=== PATIENT | male | born 1975 | race Caucasian/White ===

== ENCOUNTER 2017-03-16 12:18 | Emergency (ER) | payer OTHER ==
[~2017-03-16] VITALS: Ht 180.3 cm; Wt 86.4 kg
[~2017-03-16 12:18] MED LIST: TGRUNK; TRZUNK
[2017-03-16 12:20] VITALS: TEMP 37.1; Ht 180.3 cm; Wt 86.4 kg
[2017-03-16] MEDS ORDERED: TRL150 PO (12:52)
[2017-03-16] MEDS ORDERED: TRIH2TAB2 PO (12:52)
[2017-03-16] MEDS ORDERED: EFF75 PO (12:52)
[2017-03-16] MEDS ORDERED: GDN/80 PO (12:52)
[2017-03-16] MEDS ORDERED: TRIH5TAB2 PO (12:52)
[2017-03-16] MEDS ORDERED: NEOMOIN TOP (12:52)
[2017-03-16] MEDS ORDERED: HYDR50CA2 PO (12:52)
[2017-03-16] MEDS ORDERED: COALSHA TOP (12:52)
[2017-03-16] MEDS ORDERED: IBUP600T44 PO (12:52)
[2017-03-16] MEDS ORDERED: TRAZ50TA35 PO (12:52)
[2017-03-16] MEDS ORDERED: PRVHFAIN INH (12:52)
--- NOTE | 2017-03-16 12:58 | EMERGENCY ROOM VISIT NOTE ---
History Report prepared by Marie: Elisha Dumas Under the Supervision of: Dr. Dre Aldana M.D. First contact with patient: 12:42 Chief Complaint: GI ASSESSMENT Stated Complaint: INTERNAL BLEEDING History of Present Illness The patient is a 41 year old male who presents to the Emergency Room for a GI assessment. The patient reports hematochezia that began yesterday. He states that he is passing blood even when he is just passing gas. He has never experienced symptoms like this before. The patient also notes some lower abdominal pain that is worsened with palpation. He rates his pain as a 5/10 in severity. He notes nausea. The patient denies vomiting. He does not take any blood thinners. He has not consumed any alcohol in many years. Source of History: patient Onset: yesterday Position: other (rectum) Symptom Intensity: 5/10 Quality: other (bleeding) Timing: constant Modifying Factors (Worsening): defecation (/passing gas) Associated Symptoms: + nausea, + abdominal pain, + hematochezia, No vomiting Review of Systems All systems have been listed, reviewed, and are negative other than those previously mentioned. Please see Additional Medical History Sheet. Past Medical & Surgical Medical Problems: (1) Depressive disorder, not elsewhere classified (2) History of suicide attempt (3) Self-harming behavior Family History Cancer Social History Smoking Status: Former Smoker Alcohol Use: none Housing Status: other (incarcerated ) Occupation Status: other (incarcerated) Current/Historical Medications Scheduled Albuterol (Ventolin Hfa), 2 PUFFS INH QID Hemphill Tar Extract (Therapeutic Shampoo), 1 APPLN TOP UD Hydrocortisone Acetate (Rectal (Anusol-Hc), 1 SUPP MA BID Hydroxyzine Pamoate (Vistaril), 100 MG PO BID Ibuprofen (Motrin), 600 MG PO TID Ziekmecd-Pewfpavixv-Nuyqffabw (Lanabiotic), TOP BID Oxcarbazepine (Oxcarbazepine), 1 TAB PO BID Trazodone Hcl (Trazodone), 150 MG PO HS Trihexyphenidyl Hcl (Artane), 2 MG PO BID Trihexyphenidyl Hcl (Trihexyphenidyl Hcl), 1 TAB PO BID Venlafaxine Hcl (Effexor), 3 TABS PO DAILY Ziprasidone Hcl (Geodon), 80 MG PO BID Allergies Coded Allergies: No Known Allergies (Unverified , 03/16/17) Physical Exam Vital Signs Date Time Temp Pulse Resp B/P (MAP) Pulse Ox O2 Delivery O2 Flow Rate FiO2 03/16/17 14:58 67 16 126/81 98 03/16/17 13:56 72 18 138/89 97 Room Air 03/16/17 13:18 67 03/16/17 12:20 37.1 74 18 144/96 95 Room Air Physical Exam GENERAL: Patient awake, alert, oriented x 3. Patient follows commands. Patient does not appear toxic. Patient is adequately hydrated and well- nourished. SKIN: Multiple healed scars across chest and right arm. No erythema, pallor, cyanosis or rash HEENT: Normal head, pupils equal, reactive to light and accommodation. Ears normal. Oral cavity and posterior pharynx appear normal. Neck: Without adenopathy, no neck vein distention. LUNGS: Clear to auscultation. No wheezes, no rales, no rhonchi. HEART: No murmurs. No gallops. No rubs ABDOMEN: Scar across mid-abdomen. Vague RLQ tenderness. No masses, no rebound, no hepatomegaly or splenomegaly. RECTAL: Very small non-bleeding hemorrhoid, brown guaiac positive stool. EXTREMITIES: Multiple scars across right arm. No signs of trauma. No pedal or pretibial edema. No calf or thigh tenderness. NEUROLOGIC: Cranial nerves II-XII within normal limits. No gross motor sensory function deficits. Medical Decision & Procedures Laboratory Results 03/16/17 13:03 Red Blood Count 5.22, Mean Corpuscular Volume 82.2, Mean Corpuscular Hemoglobin 28.7, Mean Corpuscular Hemoglobin Concent 35.0, Mean Platelet Volume 8.4, Neutrophils (%) (Auto) 68.9, Lymphocytes (%) (Auto) 22.0, Monocytes (%) (Auto) 8.4, Eosinophils (%) (Auto) 0.3, Basophils (%) (Auto) 0.3, Neutrophils # (Auto) 4.82, Lymphocytes # (Auto) 1.54, Monocytes # (Auto) 0.59, Eosinophils # (Auto) 0.02, Basophils # (Auto) 0.02 03/16/17 13:03 Test 03/16/17 13:03 03/16/17 14:10 White Blood Count 7.00 K/uL (4.8-10.8) Red Blood Count 5.22 M/uL (4.7-6.1) Hemoglobin 15.0 g/dL (14.0-18.0) Hematocrit 42.9 % (42-52) Mean Corpuscular Volume 82.2 fL (80-100) Mean Corpuscular Hemoglobin 28.7 pg (25-34) Mean Corpuscular Hemoglobin Concent 35.0 g/dl (32-36) Platelet Count 264 K/uL (130-400) Mean Platelet Volume 8.4 fL (7.4-10.4) Neutrophils (%) (Auto) 68.9 % Lymphocytes (%) (Auto) 22.0 % Monocytes (%) (Auto) 8.4 % Eosinophils (%) (Auto) 0.3 % Basophils (%) (Auto) 0.3 % Neutrophils # (Auto) 4.82 K/uL (1.4-6.5) Lymphocytes # (Auto) 1.54 K/uL (1.2-3.4) Monocytes # (Auto) 0.59 K/uL (0.11-0.59) Eosinophils # (Auto) 0.02 K/uL (0-0.5) Basophils # (Auto) 0.02 K/uL (0-0.2) RDW Standard Deviation 39.8 fL (36.4-46.3) RDW Coefficient of Variation 13.2 % (11.5-14.5) Immature Granulocyte % (Auto) 0.1 % Immature Granulocyte # (Auto) 0.01 K/uL (0.00-0.02) Prothrombin Time 10.4 SECONDS (9.0-12.0) Prothromb Time International Ratio 1.0 (0.9-1.1) Activated Partial Thromboplast Time 27.3 SECONDS (21.0-31.0) Partial Thromboplastin Ratio 1.1 Anion Gap 6.0 mmol/L (3-11) Est Creatinine Clear Calc Drug Dose 94.1 ml/min Estimated GFR () 96.1 Estimated GFR (Non- 82.9 BUN/Creatinine Ratio 10.0 (10-20) Calcium Level 9.5 mg/dl (8.5-10.1) Total Bilirubin 0.5 mg/dl (0.2-1) Aspartate Amino Transf (AST/SGOT) 24 U/L (15-37) Alanine Aminotransferase (ALT/SGPT) 33 U/L (12-78) Alkaline Phosphatase 94 U/L (45-117) Total Protein 7.4 gm/dl (6.4-8.2) Albumin 4.2 gm/dl (3.4-5.0) Globulin 3.2 gm/dl (2.5-4.0) Albumin/Globulin Ratio 1.3 (0.9-2) Urine Color YELLOW Urine Appearance CLEAR (CLEAR) Urine pH 8.0 (4.5-7.5) Urine Specific [place] 1.006 (1.000-1.030) Urine Protein NEG (NEG) Urine Glucose (UA) NEG (NEG) Urine Ketones NEG (NEG) Urine Occult Blood NEG (NEG) Urine Nitrite NEG (NEG) Urine Bilirubin NEG (NEG) Urine Urobilinogen NEG (NEG) Urine Leukocyte Esterase NEG (NEG) Laboratory results as stated above per my review. ECG Indication: other Rate (beats per minute): 66 Rhythm: normal sinus Findings: no acute ischemic change, no ectopy ED Course 1242: Past medical records reviewed. The patient was evaluated in room C5. A complete history and physical examination was performed. 1422: I reassessed the patient at this time. He is feeling better and resting comfortably. I discussed the results and treatment plan with the patient. I answered all pertaining questions that he had. He expressed understanding and verbalized agreement. The patient will be discharged back to assisted. Medical Decision Differential diagnoses includes rectal bleeding, anemia, rectal polyp, diverticulitis, neoplastic disease, fissure, hemorrhoids. The patient has a small external hemorrhoid and may have internal hemorrhoids or fissure. He had minimally guaiac positive stool. Hemoglobin and hematocrit are stable. Liver enzymes are within normal range. I believe the patient can safely return to the assisted with rectal suppositories. He does need follow-up in about 1 week to make sure he is no longer bleeding. Medication Reconciliation: I attest that I have personally reviewed the patient' s current medication list. Blood Pressure Screening: Patient was found to have an elevated blood pressure and was referred to their primary doctor for recheck and further treatment. Impression Primary Impression: Rectal bleeding Scribe Attestation The scribe's documentation has been prepared under my direction and personally reviewed by me in its entirety. I confirm that the note above accurately reflects all work, treatment, procedures, and medical decision making performed by me. Departure Information Dispostion Home / Self-Care Prescriptions Hydrocortisone Acetate (Rectal (ANUSOL-HC) 25 Mg Sup 1 SUPP MA BID for 7 Days, #14 SUPP Prov: Dre Aldana M.D. 03/16/17 Referrals Chance BUTLER (PCP) Forms HOME CARE DOCUMENTATION FORM, IMPORTANT VISIT INFORMATION Patient Instructions [facility] Additional Instructions One rectal suppository twice a day for 7 days. Follow-up with the assisted physician in one week to make sure that you no longer have any rectal bleeding. Have your blood pressure checked by the assisted doctor in one week.
[2017-03-16 13:13] LABS: BASO % 0.3 %; BASO ABS # 0.02 K/uL (0-0.2); COMPLETE YES; EOS % 0.3 %; HEMATOCRIT 42.9 % (42-52); IG% 0.1 %; LYMPH ABS # 1.54 K/uL (1.2-3.4); MEAN CELL VOLUME 82.2 fL (80-100); MEAN CORPUSCULAR HEMOGLOBIN 28.7 pg (25-34); MEAN PLATELET VOLUME 8.4 fL (7.4-10.4); MONO % 8.4 %; NEUT % 68.9 %; PLATELET COUNT 264 K/uL (130-400); RED BLOOD COUNT 5.22 M/uL (4.7-6.1)
[2017-03-16 13:25] LABS: PARTIAL THROMBOPLASTIN RATIO 1.1; PROTHROMBIN TIME (PATIENT) 10.4 SECONDS (9.0-12.0)
[2017-03-16 13:34] LABS: CALCIUM 9.5 mg/dl (8.5-10.1); CREATININE 1.1 mg/dl (0.60-1.40); POTASSIUM 4.2 mmol/L (3.5-5.1)
[2017-03-16 13:37] LABS: ALB/GLOB RATIO 1.3 (0.9-2)
[2017-03-16 14:26] LABS: URINE APPEARANCE CLEAR (CLEAR); URINE BILIRUBIN NEG (NEG); URINE COLOR YELLOW; URINE NITRITE NEG (NEG); URINE SPECIFIC GRAVITY 1.006 (1.000-1.030); UROBILINOGEN NEG (NEG); ZZUR CULT IF INDIC CLEAN CATCH NO
[2017-03-16 14:29] LABS: MANUAL MICROSCOPIC REQUIRED? NO; REVIEW REQ? NO
[2017-03-16] MEDS ORDERED: HYDR25SU20 PR (14:31)
[2017-03-16 14:58] VITALS: BP 126/81; PULSE 67; O2SAT 98
== END 2017-03-16 14:55 | disposition home or self-care (01) ==
LOC: C.EDB 12:19 → C.EDC 14:55
DX: K62.5 Hemorrhage of anus and rectum (principal); Z87.891 Personal history of nicotine dependence